=== PATIENT | male | born 1980 | race Caucasian/White ===

== ENCOUNTER 2020-09-27 20:18 | Emergency (ER) | payer BC, SELFPAY ==
[2020-09-27 20:20] VITALS: BP 127/77; PULSE 96; RESP 15; TEMP 36.9; O2SAT 98; BMI 22.8
[2020-09-27 20:25] VITALS: BP 127/77; PULSE 92; RESP 16; O2SAT 97
--- NOTE | 2020-09-27 20:33 | EX.ED.DYSGE1 ---
HPI History of Present Illness Chief Complaint: GI Bleed Informant: patient and EMS Narrative Narrative: 40-year-old male presents to the emergency department via EMS with the chief complaint of vomiting blood. Patient states that he underwent Nirali-en-Y gastric bypass in 2018 with [facility] [place]. He reports that he has been taking an antacid as needed. Today he was feeling good went out to dinner and had prime rib and Irish onion soup. On the way home from dinner he was complaining of a lymph node in his neck but also feeling nauseous. When he got home he began to vomit bright red blood. EMS notes that he vomited approximately 400 cc of bright red blood and food matter while in route to the hospital. Upon arriving here he states that he actually feels pretty good. He denies any black or bloody stools. The patient reports that he drinks 3-4 beers per day. He notes diarrhea for the past 3 days but again not black or bloody. [facility] Medical History (Updated 09/27/20 @ 21:[address] Cristian Horan, ) Alcohol abuse Anxiety Bulging disc Chest pain Depression Former smoker GERD (gastroesophageal reflux disease) Hypertension Spinal stenosis Home Medications bupropion HCl [Wellbutrin XL] 150 mg PO DAILY 09/27/20 [History Last Taken Unknown] Allergy/AdvReac Type Severity Reaction Status Date / Time No Known Allergies Allergy Verified 04/30/13 10:45 Surgical History (Updated 09/27/20 @ 20:37 by Andrew Sullivan) H/O gastric bypass History of arthroplasty of left knee S/P left rotator cuff repair Social History Smoking Status: Former smoker ROS ROS ED Constitutional Constitutional ED: Denies chills or weight loss Eyes Eyes: Denies change in vision or diplopia ENT ENT ED: Denies ear pain, rhinorrhea or sore throat Cardiovascular Cardiovascular: Denies chest pain, orthopnea, palpitations or racing heartbeat Respiratory/Chest Respiratory/Chest: Denies cough, dyspnea or orthopnea Gastrointestinal Gastrointestinal: Reports diarrhea, nausea and vomiting; Denies abdominal pain Genitourinary Genitourinary ED: Denies dysuria, hematuria or urinary frequency Musculoskeletal Musculoskeletal: Denies arthralgias or myalgias Integumentary Denies abscess or rash Neurologic Neurologic: Denies headache(s) or weakness Psychiatric Psychiatric: Denies anxiety, depression, suicidal ideation or suicidal thoughts Endocrine Endocrinology: Denies polydipsia, polyphagia or polyuria Allergic/Immunologic Allergic/Immunologic ED: Denies mouth swelling, tongue swelling or urticaria EXAM Physical Exam Narrative Exam Narrative: Patient is holding an emesis bag with approximately 200 cc of bright red blood. Const Vital Signs: 09/27/20 20:20 09/27/20 20:25 09/27/20 21:22 Temperature 98.4 F Temperature Source Temporal Pulse Rate 96 92 77 Respiratory Rate 15 16 14 Blood Pressure 127/77 H 127/77 H 100/59 L Blood Pressure Mean 93 93 72 Pulse Ox 98 97 97 Oxygen Delivery Method Room Air Room Air Room Air 09/27/20 22:15 Temperature Temperature Source Pulse Rate 73 Respiratory Rate 15 Blood Pressure 100/73 Blood Pressure Mean 82 Pulse Ox 98 Oxygen Delivery Method Room Air Positive well nourished and well developed General Appearance ED: well developed HEENT Reports normocephalic, head/scalp atraumatic and moist mucous membranes Eyes PERRL and EOMs intact bilaterally Neck no lymphadenopathy, supple and no JVD Resp normal respiratory effort and clear to auscultation bilaterally Cardio regular rate, regular rhythm and no murmurs GI normal to inspection, nondistended, normoactive bowel sounds and non-tender Palpation: soft Back/Spine no CVA tenderness and normal ROM Extremity normal to inspection General Extremety ED: Negative for edema General Extremity: Negative for edema Neuro oriented x3 and CN's II-XII intact bilaterally Sensorium / Orientation: alert Motor Exam: strength 5/5 throughout Psych mental status grossly normal Mood & Affect: Negative for depressed or tearful Skin no rashes or lesions noted and no wounds MDM MDM MDM Narrative Medical decision making narrative: Patient's white count starting at 13.8. Coags were normal. Lipase 295. BUN of 21 creatinine 0.77. Patient received IV fluids Zofran Protonix bolus and drip. My concern is that the patient has a ulcer most likely from lack of Protonix from his Nirali-en-Y. Cannot rule out the possibility of varicoses given his alcohol intake. I spoke with on-call surgeon here who recommends transfer to tertiary care facility where they have gastrointestinal coverage. We will be working on this. I spoke initially with Dr. Tam from [facility] and later Dr. Luna from [facility]. Patient has been accepted we will currently await a bed assignment. She has been hemodynamically stable and said no further bleeding. Lab Data Attestation: I reviewed the patient's lab results. Labs: Laboratory Results - last 24 hr 09/27/20 09/27/20 09/27/20 20:23 20:23 20:23 WBC 11.0 RBC 4.44 L Hgb 13.8 Hct 41.8 MCV 94.1 H MCH 31.1 MCHC 33.0 RDW Std Deviation 42.4 RDW Coeff of Connie 12.1 Plt Count 336 MPV 10.6 Immature Gran % (Auto) 0.600 Neut % (Auto) 56.6 Lymph % (Auto) 31.0 [place] % (Auto) 8.9 Eos % (Auto) 2.5 Baso % (Auto) 0.4 Absolute Neuts (auto) 6.2 Absolute Lymphs (auto) 3.40 Nucleated RBC % 0 PT 13.3 INR 1.1 APTT 25.0 Sodium 142 Potassium 4.4 Chloride 108 H Carbon Dioxide 27.0 Anion Gap 7 BUN 21 H Creatinine 0.77 Estim Creat Clear Calc 155.58 Est GFR (MDRD) Af Amer 145 Est GFR (MDRD) Non-Af 119 BUN/Creatinine Ratio 27.3 H Glucose 79 Calcium 7.4 L Total Bilirubin 0.40 Direct Bilirubin 0.12 AST 30 ALT 42 Alkaline Phosphatase 68 Total Protein 5.9 L Albumin 2.7 L Globulin 3.2 Lipase 295 09/27/20 22:35 WBC RBC Hgb 12.3 L Hct 37.4 L MCV MCH MCHC RDW Std Deviation RDW Coeff of Connie Plt Count MPV Immature Gran % (Auto) Neut % (Auto) Lymph % (Auto) [place] % (Auto) Eos % (Auto) Baso % (Auto) Absolute Neuts (auto) Absolute Lymphs (auto) Nucleated RBC % PT INR APTT Sodium Potassium Chloride Carbon Dioxide Anion Gap BUN Creatinine Estim Creat Clear Calc Est GFR (MDRD) Af Amer Est GFR (MDRD) Non-Af BUN/Creatinine Ratio Glucose Calcium Total Bilirubin Direct Bilirubin AST ALT Alkaline Phosphatase Total Protein Albumin Globulin Lipase Discharge Plan Triage Chief Complaint: GI Bleed ED Provider: Cristian Horan Dx/Rx/DC Orders Clinical Impression: Acute upper gastrointestinal hemorrhage Prescriptions: No Action bupropion HCl [Wellbutrin XL] 150 mg tablet extended release 24 hr 150 mg PO DAILY RF: 0 Primary Care Provider: Hawk Garcia Referrals: Hawk Garcia MD [Primary Care Provider] - Disposition Disposition: Acute Care Hospital
[2020-09-27] MEDS: Ondansetron 4 MG/2 ML Vial IV (20:42)
[2020-09-27 20:53] LABS: International Normalized Ratio 1.1; Prothrombin Time (Protime)PT. 13.3 SECONDS (11.7-14.9)
[2020-09-27 20:54] LABS: Absolute Neutrophil Count 6.2 X10^3/uL (2.0-7.7); Basophil# 0.04 X10^3/uL; Basophil% 0.4 % (0-1); Eosinophil# 0.27 X10^3/uL; Eosinophils% 2.5 % (0-5); Hematocrit 41.8 % (40-54); Hemoglobin 13.8 g/dL (13.0-16.5); Mean Corpuscular Hgb 31.1 pg (27.0-32.0); Mean Corpuscular Volume 94.1 fL (80-94); Mean Platelet Vol. 10.6 fl (6.2-12.0); Monocyte# 0.97 X10^3/uL; Monocyte% 8.9 % (0-10); NRBC Flagged by Analyzer 0 % (0-5); Neutrophil # 6.21 X10^3/uL (2.7-7.7); Neutrophil % 56.6 % (47-70); Platelet Count 336 K/mm3 (150-450); RBC Distribution Width CV 12.1 % (11.6-14.6); RBC Distribution Width SD 42.4 fl (35.1-43.9); Red Blood Count 4.44 M/mm3 (4.6-6.2)
[2020-09-27 21:05] LABS: AST(SGOT) 30 U/L (15-37); Alanine Aminotransfer ALT/SGPT 42 U/L (16-61); Albumin, Serum 2.7 g/dL (3.2-5.0); Alkaline Phosphatase 68 U/L (45-117); Anion Gap 7 (5-15); BUN 21 mg/dL (7-18); BUN/Creat Ratio 27.3 RATIO (10-20); Bilirubin, Direct 0.12 mg/dL (0.00-0.30); Calcium,Total 7.4 mg/dL (8.5-10.1); Chloride 108 mmol/L (98-107); Creatinine, Serum 0.77 mg/dL (0.70-1.30); EST Glomerular Filtration Rate 119 mL/min (>60); Est Glom Filt Rate - Afr Amer 145 mL/min (>60); Estimated Creatinine Clearance 155.58 ml/min; Globulin 3.2 g/dL (2.2-4.2); Glucose 79 mg/dL (74-106); Lipase 295 U/L (73-393); Potassium 4.4 mmol/L (3.5-5.1); Protein, Total 5.9 g/dL (6.4-8.2); Sodium Level 142 mmol/L (136-145)
[2020-09-27 21:22] VITALS: BP 100/59; PULSE 77; RESP 14; O2SAT 97
[2020-09-27 22:15] VITALS: BP 100/73; PULSE 73; RESP 15; O2SAT 98
[2020-09-27 22:45] LABS: Hematocrit 37.4 % (40-54); Hemoglobin 12.3 g/dL (13.0-16.5)
[2020-09-27 23:21] VITALS: BP 103/63; PULSE 72; RESP 14; O2SAT 96
[2020-09-28] MEDS: Ondansetron 4 MG/2 ML Vial IV (00:03)
[2020-09-28 00:29] VITALS: BP 109/75; PULSE 67; RESP 15; TEMP 36.9; O2SAT 98
== END 2020-09-28 00:45 | disposition short-term general hospital (02) ==
PROVIDERS: Emergency Provider Emergency Medicine; PCP Internal Medicine
DX: K92.2 Gastrointestinal hemorrhage, unspecified (principal); F32.9 Major depressive disorder, single episode, unspecified; Z79.899 Other long term (current) drug therapy; Z87.891 Personal history of nicotine dependence; Z98.84 Bariatric surgery status
CPT/HCPCS: 80048; 80076; 83690; 85014; 85018; 85025; 85610; 85730; 86850; 86900; 86901; 87426; 96365; 96366; 96375; 96376; 99285; J7030; A4216; J2405; J3490

== ENCOUNTER 2021-09-21 16:16 | Emergency (ER) | payer BC, SELFPAY ==
[2021-09-21 16:17] VITALS: BP 124/73; PULSE 67; RESP 16; TEMP 36.3; O2SAT 99; BMI 20.7
--- NOTE | 2021-09-21 17:06 | EKG12_ITS ---
Test Reason : CHEST TIGHTNESS Blood Pressure : / mmHG Vent. Rate : 057 BPM Atrial Rate : 057 BPM P-R Int : 148 ms QRS Dur : 076 ms QT Int : 426 ms P-R-T Axes : 067 052 069 degrees QTc Int : 414 ms Sinus bradycardia Otherwise normal ECG Confirmed by ALIDA MENEZES, MO ([id number]), sports editor EMILY SANTANA ([id number]) on 09/22/2021 11:17:07 AM Referred By: BEAN Confirmed By:MO IRWIN MD
--- NOTE | 2021-09-21 17:07 | EDS_ITS ---
HPI History of Present Illness Chief Complaint: General Illness Detail of Chief Complaint: Fatigue and weakness for weeks. Informant: patient Onset/Context/Timing Onset: Weeks Context: Gradual Onset Timing: Continuous Current Severity: Mild Maximum Severity: Mild Narrative Narrative: 41-year-old male history of gastric bypass surgery years ago in which she lost over 200 pounds. He does drink alcohol frequently. States the last several weeks has been very tired with fatigue no energy. Said yesterday he kind of felt dizzy. Nauseated. He threw up once. He is also had diarrhea for weeks. He denies any melena. No fever. Hematemesis. No dysuria. He denies any significant recent weight change after he stabilized after his gastric bypass surgery. He has had a history of bleeding gastric ulcer before but said the symptoms are different. At that time he was throwing up large amounts of blood. Prior similar symptoms: No Recent Illness/Hospitalization: No PFSH PFSH Medical History Alcohol abuse Anxiety Bulging disc Chest pain Depression Former smoker GERD (gastroesophageal reflux disease) Hypertension Spinal stenosis Home Medications multivitamin 1 tab PO DAILY 09/21/21 [History Last Taken Unknown] omeprazole 40 mg capsule,delayed release 1 cap PO DAILY 09/21/21 [History Last Taken Unknown] Allergy/AdvReac Type Severity Reaction Status Date / Time NSAIDS (Non-Steroidal AdvReac Other Verified 09/21/21 16:22 Anti-Inflamma Surgical History H/O gastric bypass History of arthroplasty of left knee S/P left rotator cuff repair Social History Smoking Status: Former smoker ROS ROS ED ROS Narrative Nausea and vomiting. Weakness. Review of Systems ROS Unobtainable: Denies due to encephalopathy Constitutional Constitutional ED: Denies chills or fever(s) Eyes Eyes: Denies blurry vision ENT ENT ED: Denies ear pain Cardiovascular Cardiovascular: Denies chest pain Respiratory/Chest Respiratory/Chest: Denies cough or dyspnea Gastrointestinal Gastrointestinal: Reports diarrhea, nausea and vomiting; Denies constipation or melena Genitourinary Genitourinary ED: Denies dysuria or hematuria Integumentary Denies abscess Neurologic Neurologic: Denies headache(s) Psychiatric Psychiatric: Denies anxiety Endocrine Endocrinology: Denies cold intolerance Hematologic/Lymphatic Hematologic/Lymphatic: Reports none Allergic/Immunologic Allergic/Immunologic ED: Denies mouth swelling or tongue swelling EXAM Physical Exam Narrative Exam Narrative: Well-appearing 41-year-old male. Vital signs stable afebrile. Pulse ox 99% on room air no signs hypoxia. Significant other bedside. H EENT exam unremarkable. Moist weeks membranes. Neck nontender no lymphadenopathy. Lungs clear to auscultation. Heart regular rhythm no murmur. Abdomen soft nontender normal bowel sounds no peritoneal signs. Moving all 4 extremities. Nontender no edema. Neurologically awake alert with no focal motor deficits. Const Vital Signs: 09/21/21 16:17 09/21/21 18:05 09/21/21 18:25 Temperature 97.3 F L 97.3 F L Temperature Source Temporal Temporal Pulse Rate 67 67 Respiratory Rate 16 16 Respiratory Effort Normal Non-Labored Respiratory Pattern Normal Blood Pressure 124/73 H 124/73 H Blood Pressure Mean 90 90 Pulse Ox 99 99 Oxygen Delivery Method Room Air Room Air Positive well nourished and well developed; Negative for obese, cachectic or contractures General Appearance ED: well developed; Negative for cachectic or contractures Nutritional Appearance: Negative for cachectic or obese HEENT Reports moist mucous membranes; Denies dry mucous membranes Negative for trauma Mouth ED: No dry mucous membranes Mouth: No dry mucous membranes Eyes PERRL and EOMs intact bilaterally General Eye ED: Negative for pale conjunctiva or scleral icterus Neck no lymphadenopathy, supple and no JVD General: Negative for tenderness Lymph Lymphatic: Negative for other Chest Wall inspection of chest normal and palpation of chest normal Resp normal respiratory effort and clear to auscultation bilaterally Effort and Inspection: Negative for retractions Auscultation: Negative for rales, rhonchi or wheezes Cardio regular rate, regular rhythm, S1 normal heart sound, S2 normal heart sound and no murmurs Rate: Negative for bradycardia Rhythm: Negative for abnormal rhythm GI normal to inspection, nondistended, normoactive bowel sounds, non-tender, non- distended and no masses Inspection: Negative for abdominal distention Auscultation: normoactive bowel sounds Palpation: soft; Negative for tender or guarding Back/Spine no CVA tenderness Cervical Spine: Negative for cervical spine tenderness Thoracic Spine / Upper Back: Negative for thoracic spinal tenderness Lumbar Spine / Lower Back: Negative for lumbar spinal tenderness Extremity normal to inspection General Extremety ED: Negative for edema or tenderness General Extremity: Negative for edema Neuro oriented x3 and CN's II-XII intact bilaterally Sensorium / Orientation: alert Motor Exam: strength 5/5 throughout Psych mental status grossly normal Appearance: Negative for other Attitude: No agitated Mood & Affect: Negative for depressed Skin no rashes or lesions noted and no wounds Rashes: No rashes noted Trauma: Negative for abrasion Wounds: Negative for wounds noted MDM MDM MDM Narrative Medical decision making narrative: 41-year-old male for 2 weeks is just felt generalized fatigue. His exam is benign. I will undergo work-up including labs, EKG and chest x-ray. Repeat exam at 6:58 PM patient doing well. I went over all his test results of both he and his . He will be discharged home with outpatient follow-up. His appointment to see his bariatric surgeon at the [facility] tomorrow. His labs, EKG chest x-ray were basically unremarkable. Lab Data Attestation: I reviewed the patient's lab results. Lab results narrative: CBC White count 8. H&H 13 and 41. Electrolytes gap of 3 BUN 22 creatinine 0.8. Liver enzymes unremarkable. Lipase normal 218. Thyroid test normal. Chest x- ray no acute process. EKG sinus bradycardia rate of [address] of [address] or ischemia nor any significant dysrhythmia. Labs: Laboratory Results - last 24 hr 09/21/21 09/21/21 17:40 17:40 WBC 8.4 RBC 4.35 L Hgb 13.6 Hct 41.2 MCV 94.7 H MCH 31.3 MCHC 33.0 RDW Std Deviation 43.9 RDW Coeff of Connie 12.6 Plt Count 271 MPV 10.2 Immature Gran % (Auto) 0.600 Neut % (Auto) 63.7 Lymph % (Auto) 20.5 [place] % (Auto) 13.5 H Eos % (Auto) 1.3 Baso % (Auto) 0.4 Absolute Neuts (auto) 5.4 Absolute Lymphs (auto) 1.72 Nucleated RBC % 0 Sodium 140 Potassium 3.7 Chloride 106 Carbon Dioxide 31.0 Anion Gap 3 L BUN 22 H Creatinine 0.88 Estim Creat Clear Calc 121.70 Est GFR (MDRD) Af Amer 122 Est GFR (MDRD) Non-Af 101 BUN/Creatinine Ratio 24.9 H Glucose 93 Calcium 8.0 L Total Bilirubin 0.30 AST 38 H ALT 42 Alkaline Phosphatase 73 Troponin I High Sens 4 Total Protein 5.9 L Albumin 2.5 L Globulin 3.4 Albumin/Globulin Ratio 0.7 L Lipase 218 TSH 0.73 Radiography Chest X-Ray - ED: 1 View, Read by ED Physician, Read by Radiologist, Heart, Lungs, Mediastinum, Bony Structures, No Acute Disease and Chronic Changes Diagnostic Testing: Clinical Impression(s) from Imaging Studies Chest X-Ray 09/21/21 18:05 IMPRESSION: No acute cardiopulmonary abnormality. Electronically Signed: Jaylen Dexter MD at 18:24 EDT , Chest x-ray, portable, single view interpreted by myself and radiologist shows no acute abnormality. Normal cardiac silhouette mediastinum. Normal lung kaur. Rhythm Strip Rhythm Strip: Sinus Rhythm Rate: 57 Ectopy: None EKG Initial EKG: Attestation: I personally reviewed and interpreted this EKG as follows: Interpretation: Sinus Rhythm, No Acute Injury Pattern and Sinus Bradycardia Comments: Sinus bradycardia rate of [address] of [address], ischemia or significant dysrhythmia. Discharge Plan Triage Chief Complaint: General Illness ED Provider: Oren Coffman Dx/Rx/DC Orders Clinical Impression: Fatigue Instructions: ED Weakness (Uncertain Cause) Prescriptions: No Action bupropion HCl [Wellbutrin XL] 150 mg tablet extended release 24 hr 150 mg PO DAILY Primary Care Provider: Hawk Garcia Referrals: Hawk Garcia MD [Primary Care Provider] - 1 Week if not improving Activity Restrictions/Additional Instructions: Follow-up with your gastric bypass surgeon tomorrow. Follow-up with your primary care physician not improving. Your labs, EKG and chest x-ray today were all unremarkable. Disposition Disposition: Home, Self Care
[2021-09-21 17:50] LABS: Absolute Lymphocyte Count 1.72 X10^3/uL (0.83-4.51); Absolute Neutrophil Count 5.4 X10^3/uL (2.0-7.7); Basophil# 0.03 X10^3/uL; Basophil% 0.4 % (0-1); Eosinophil# 0.11 X10^3/uL; Eosinophils% 1.3 % (0-5); Hematocrit 41.2 % (40-54); Hemoglobin 13.6 g/dL (13.0-16.5); Lymphocyte # 1.72 X10^3/ul (0.83-4.51); Lymphocyte % 20.5 % (19-41); Mean Corpuscular Hgb 31.3 pg (27.0-32.0); Mean Corpuscular Volume 94.7 fL (80-94); Mean Platelet Vol. 10.2 fl (6.2-12.0); Monocyte# 1.13 X10^3/uL; Monocyte% 13.5 % (0-10); NRBC Flagged by Analyzer 0 % (0-5); Neutrophil # 5.35 X10^3/uL (2.7-7.7); Neutrophil % 63.7 % (47-70); Platelet Count 271 K/mm3 (150-450); RBC Distribution Width CV 12.6 % (11.6-14.6); RBC Distribution Width SD 43.9 fl (35.1-43.9); Red Blood Count 4.35 M/mm3 (4.6-6.2); White Blood Count 8.4 K/mm3 (4.4-11.0)
[2021-09-21 18:05] VITALS: BP 124/73; PULSE 67; RESP 16; TEMP 36.3; O2SAT 99
--- NOTE | 2021-09-21 18:05 | RAD_ITS ---
EXAM: XR CHEST, 1 VIEW CLINICAL INDICATION: weakness TECHNIQUE: Frontal view of the chest. This report was created using [employer] report generation technology. COMPARISON: None. FINDINGS: LUNGS AND PLEURAL SPACES: Calcified granuloma in the right lung apex. No pneumothorax. No effusion. HEART: Unremarkable. Cardiac silhouette not enlarged. MEDIASTINUM: Central airways and mediastinal contour are unremarkable. BONES/JOINTS: Unremarkable. SOFT TISSUES: Unremarkable. RAD/Chest 1 View (Portable) IMPRESSION: No acute cardiopulmonary abnormality. Electronically Signed: Jaylen Dexter MD at 18:24 EDT ,
[2021-09-21 18:15] LABS: ALB/GLOB Ratio 0.7 RATIO (0.9-2.4); AST(SGOT) 38 U/L (15-37); Alanine Aminotransfer ALT/SGPT 42 U/L (16-61); Albumin, Serum 2.5 g/dL (3.2-5.0); Alkaline Phosphatase 73 U/L (45-117); Anion Gap 3 (5-15); BUN 22 mg/dL (7-18); BUN/Creat Ratio 24.9 RATIO (10-20); Chloride 106 mmol/L (98-107); Creatinine, Serum 0.88 mg/dL (0.70-1.30); EST Glomerular Filtration Rate 101 mL/min (>60); Est Glom Filt Rate - Afr Amer 122 mL/min (>60); Globulin 3.4 g/dL (2.2-4.2); Glucose 93 mg/dL (74-106); Lipase 218 U/L (73-393); Potassium 3.7 mmol/L (3.5-5.1); Protein, Total 5.9 g/dL (6.4-8.2); Sodium Level 140 mmol/L (136-145); Thyroid Stim Hormone (TSH) 0.73 uIU/mL (0.358-3.74); Troponin-I HS 4 pg/mL (3.0-78.0)
[2021-09-21 19:04] VITALS: PULSE 58; RESP 16; O2SAT 99
== END 2021-09-21 19:08 | disposition home or self-care (01) ==
PROVIDERS: Emergency Provider Emergency Medicine; PCP Internal Medicine; Visit Provider Emergency Medicine
DX: R53.83 Other fatigue (principal); K21.9 Gastro-esophageal reflux disease without esophagitis; Z87.891 Personal history of nicotine dependence; Z79.899 Other long term (current) drug therapy; Z98.84 Bariatric surgery status
CPT/HCPCS: 71045; 80053; 83690; 84443; 84484; 85025; 93005; 99283

== ENCOUNTER 2021-09-27 18:36 | Emergency (ER) | payer BC, SELFPAY ==
[2021-09-27 18:37] VITALS: BP 168/93; PULSE 100; RESP 17; TEMP 36.7; O2SAT 97; BMI 22.3
--- NOTE | 2021-09-27 18:48 | EX.ED.SAOD ---
HPI History of Present Illness Chief Complaint: Mental Health Detail of Chief Complaint: accidental substance ingestion Informant: patient Onset/Context/Timing Onset: Today (within past 1-2 hrs) Context: Gradual Onset Timing: Continuous Quality: feels poorly Location: all over Current Severity: Severe Maximum Severity: Severe Worsened by: nothing Relieved by: nothing Narrative Narrative: Patient was with his significant other, he was with some friends, one of them has rheumatoid arthritis and takes Gummies with something in them that they are unaware of, suspecting THC, he was drinking a large glass of rum at the time and his friend offered him a gummy that he ingested and then relatively quickly started feeling very poorly and they decided to leave. On the way back here home, he started having occasional jerking without any loss of consciousness, more like and occasional myoclonic jerk throughout his body no convulsions or seizure activity, and moaning about how poorly he feels which is how he has now. Patient is apologetic, he did not try to overdose on anything or take any other pills or medications with this. [facility] Medical History Alcohol abuse Anxiety Bulging disc Chest pain Depression Former smoker GERD (gastroesophageal reflux disease) Hypertension Spinal stenosis Home Medications multivitamin 1 tab PO DAILY 09/21/21 [History Last Taken Unknown] omeprazole 40 mg capsule,delayed release 1 cap PO DAILY 09/21/21 [History Last Taken Unknown] Allergy/AdvReac Type Severity Reaction Status Date / Time NSAIDS (Non-Steroidal AdvReac Other Verified 09/27/21 18:37 Anti-Inflamma Surgical History H/O gastric bypass History of arthroplasty of left knee S/P left rotator cuff repair Social History Smoking Status: Former smoker ROS ROS ED Constitutional Constitutional ED: Reports fatigue and malaise; Denies chills or fever(s) Eyes Eyes: Denies change in vision or diplopia ENT ENT ED: Reports dry mouth; Denies rhinorrhea or sore throat Cardiovascular Cardiovascular: Denies chest pain or palpitations Respiratory/Chest Respiratory/Chest: Denies cough or dyspnea Gastrointestinal Gastrointestinal: Denies abdominal pain, diarrhea, nausea or vomiting Genitourinary Genitourinary ED: Denies dysuria or hematuria Musculoskeletal Musculoskeletal: Denies back pain or neck pain Integumentary Denies abscess or rash Neurologic Neurologic: Denies headache(s), paresthesias or weakness Psychiatric Psychiatric: Reports anxiety; Denies suicidal thoughts EXAM Physical Exam Const Vital Signs: 09/27/21 20:59 09/27/21 23:11 Pulse Rate 78 71 Respiratory Rate 15 16 Blood Pressure 124/76 H 103/58 L Blood Pressure Mean 92 Pulse Ox 95 98 Oxygen Delivery Method Room Air Positive well nourished and well developed General Appearance ED: well developed and NAD HEENT Reports moist mucous membranes normocephalic and atraumatic Eyes PERRL and EOMs intact bilaterally Eyes Narrative: horiz nystagmus Neck full ROM and supple Resp normal respiratory effort and clear to auscultation bilaterally Cardio regular rate, regular rhythm and no murmurs GI non-tender and non-distended Auscultation: normoactive bowel sounds Palpation: soft Back/Spine no CVA tenderness General Back: other FROM Extremity normal to inspection General Extremety ED: Negative for edema, pulses abnormal or tenderness General Extremity: Negative for edema or pulses abnormal Neuro oriented x3, CN's II-XII intact bilaterally and no sensory deficits noted Sensorium / Orientation: awake and alert Motor Exam: strength 5/5 throughout Skin no rashes or lesions noted and no wounds Skin Narrative: dry; no diaphoresis MDM MDM MDM Narrative Medical decision making narrative: Patient does not have a clinical toxidrome that necessitates an antidote; I suspect this is alcohol and THC, and obtaining a drug screen and alcohol level, basic labs with electrolytes and renal function, and given a liter of fluid. He was a little hypertensive initially 168/93, but while I am in the room his blood pressures in the 140s, heart rate in the 90s, and the rest of his vital signs are normal. He occasionally is shaky in his legs a little, but for the most part just appears high and possibly intoxicated. Alcohol is 118, that alone does not account for the patient's state, and I agree with he and his significant other that he had some other type of substance that he ingested likely THC, however after a liter of IV fluid he does not feel like he needs to urinate. They do want to provide specimen for toxicology screening, so he was given another liter of fluid. Patient is not acutely agitated, he is actually a little more somnolent, although he awakes easily to voice. His vital signs have remained normal since his initial pressure that was elevated, at the time of this dictation 124/76. He slept for an hour or 2 according to significant other, he was never hypoxic or bradypneic so I do not feel that he needs to be treated with Narcan. Toxicology is sent and pending; will report results and then likely discharge home to continue resting. It was positive for THC as expected. Given appropriate discharge instructions. Lab Data Attestation: I reviewed the patient's lab results. Labs: Laboratory Results - last 24 hr 09/27/21 09/27/21 18:45 22:00 Urine Opiates Screen NEGATIVE Urine Methadone Screen NEGATIVE Ur Barbiturates Screen NEGATIVE Ur Phencyclidine Scrn NEGATIVE Ur Amphetamines Screen NEGATIVE MDMA (Ecstasy) Screen NEGATIVE U Benzodiazepines Scrn NEGATIVE Urine Cocaine Screen NEGATIVE U Cannabinoids Screen POSITIVE H Ur Drug Screen Comment Ethyl Alcohol 118.0 Rhythm Strip Rhythm Strip: Sinus Rhythm Rate: 95 Ectopy: None Discharge Plan Triage Chief Complaint: Mental Health ED Provider: Mook Pablo Dx/Rx/DC Orders Clinical Impression: Ingestion of substance, Alcohol intoxication Instructions: Understanding Synthetic Marijuana Prescriptions: No Action multivitamin Tablet 1 tab PO DAILY omeprazole 40 mg capsule,delayed release(DR/EC) 1 cap PO DAILY Label Comments: TAKE 1 CAPSULE BY MOUTH EVERY DAY Primary Care Provider: Hawk Garcia Referrals: Hawk Garcia MD [Primary Care Provider] - As Needed Disposition Disposition: Home, Self Care Discharge Date/Time: 09/27/21 23:12
[2021-09-27] MEDS: 0.9% Normal Saline 1,000 ML 999 ML IV ×2 (18:56→21:00)
[2021-09-27 18:58] LABS: Absolute Lymphocyte Count 2.58 X10^3/uL (0.83-4.51); Absolute Neutrophil Count 5.7 X10^3/uL (2.0-7.7); Basophil# 0.05 X10^3/uL; Basophil% 0.5 % (0-1); Eosinophil# 0.11 X10^3/uL; Eosinophils% 1.2 % (0-5); Hematocrit 44.9 % (40-54); Hemoglobin 14.6 g/dL (13.0-16.5); Lymphocyte # 2.58 X10^3/ul (0.83-4.51); Mean Corp Hgb Conc 32.5 g/dL (32-36); Mean Corpuscular Hgb 30.7 pg (27.0-32.0); Mean Corpuscular Volume 94.5 fL (80-94); Mean Platelet Vol. 9.7 fl (6.2-12.0); Monocyte# 0.98 X10^3/uL; Monocyte% 10.3 % (0-10); NRBC Flagged by Analyzer 0 % (0-5); Neutrophil # 5.73 X10^3/uL (2.7-7.7); Platelet Count 379 K/mm3 (150-450); RBC Distribution Width CV 12.3 % (11.6-14.6); RBC Distribution Width SD 43.2 fl (35.1-43.9); Red Blood Count 4.75 M/mm3 (4.6-6.2); White Blood Count 9.6 K/mm3 (4.4-11.0)
[2021-09-27 19:11] LABS: Anion Gap 8 (5-15); BUN 8 mg/dL (7-18); BUN/Creat Ratio 8.5 RATIO (10-20); Calcium,Total 7.9 mg/dL (8.5-10.1); Chloride 106 mmol/L (98-107); Creatinine, Serum 0.94 mg/dL (0.70-1.30); EST Glomerular Filtration Rate 94 mL/min (>60); Est Glom Filt Rate - Afr Amer 113 mL/min (>60); Estimated Creatinine Clearance 122.78 ml/min; Glucose 142 mg/dL (74-106); Potassium 3.3 mmol/L (3.5-5.1); Sodium Level 140 mmol/L (136-145)
[2021-09-27 20:59] VITALS: BP 124/76; PULSE 78; RESP 15; O2SAT 95
[2021-09-27 22:58] LABS: Amphetamine Urine VISTA NEGATIVE (<1000 ng/mL); Barbiturate Urine VISTA NEGATIVE (< 200 ng/mL); Benzodiazepine Urine VISTA NEGATIVE (< 200 ng/mL); Cocaine Urine VISTA NEGATIVE (< 300 ng/mL); Ecstacy Urine VISTA NEGATIVE (< 500 ng/mL); Methadone Urine VISTA NEGATIVE (< 300 ng/mL); PCP Urine VISTA NEGATIVE (< 25 ng/mL); THC Urine VISTA POSITIVE (< 50 ng/mL); Vista UDS pH Range 5
[2021-09-27 23:11] VITALS: BP 103/58; PULSE 71; RESP 16; O2SAT 98
== END 2021-09-27 23:12 | disposition home or self-care (01) ==
PROVIDERS: Emergency Provider Emergency Medicine; PCP Internal Medicine; Visit Provider Emergency Medicine
DX: T65.91XA Toxic effect of unspecified substance, accidental (unintentional), initial encounter (principal); F10.129 Alcohol abuse with intoxication, unspecified; K21.9 Gastro-esophageal reflux disease without esophagitis; Z87.891 Personal history of nicotine dependence; Z79.899 Other long term (current) drug therapy
CPT/HCPCS: 80048; 80307; 82077; 85025; 99282; J7030

== ENCOUNTER 2021-12-31 12:52 | Emergency (ER) | payer BC, SELFPAY ==
[2021-12-31 12:53] VITALS: BP 154/92; PULSE 81; RESP 18; TEMP 36.6; O2SAT 97; BMI 21.7
--- NOTE | 2021-12-31 13:20 | EKG12_ITS ---
Test Reason : CP Blood Pressure : / mmHG Vent. Rate : 084 BPM Atrial Rate : 084 BPM P-R Int : 114 ms QRS Dur : 064 ms QT Int : 350 ms P-R-T Axes : 050 068 082 degrees QTc Int : 413 ms Normal sinus rhythm Nonspecific T wave abnormality Abnormal ECG Confirmed by ESMER MENEZES, ROBYN ([id number]), news videotape editor AMANDA KEITA ([id number]) on 01/02/2022 2:13:23 P M Referred By: ALBAN/ROBERT Confirmed By:CLIVE LYMAN MD
--- NOTE | 2021-12-31 13:35 | RAD_ITS ---
STUDY: X-RAY CHEST REASON FOR EXAM: Male, 41 years old. Generalized weakness. Cough. TECHNIQUE: Single AP portable view of the chest. COMPARISON: Comparison is made with prior study dated 09/21/2021. FINDINGS: Hyperinflation. The lungs are clear and expanded. There is no demonstrated pleural abnormality. Normal size heart. Normal mediastinum and siri. Normal visualized pulmonary arteries. Normal visualized aortic arch and descending thoracic aorta. Normal visualized thoracic spine. Normal visualized ribs, clavicles, and shoulders. There is no demonstrated abnormality of the visualized soft tissue structures of the upper abdomen. RAD/Chest 1 View (Portable) IMPRESSION: Hyperinflation. The lungs are clear. Electronically Signed: Poli Roth MD at 14:00 EDT ,
[2021-12-31 13:48] LABS: Anion Gap 8 (5-15); BUN 11 mg/dL (7-18); BUN/Creat Ratio 10.8 RATIO (10-20); Chloride 103 mmol/L (98-107); Creatinine, Serum 1.02 mg/dL (0.70-1.30); EST Glomerular Filtration Rate 86 mL/min (>60); Est Glom Filt Rate - Afr Amer 104 mL/min (>60); Estimated Creatinine Clearance 109.94 ml/min; Glucose 331 mg/dL (74-106); Potassium 3.8 mmol/L (3.5-5.1); Sodium Level 135 mmol/L (136-145)
[2021-12-31 13:58] LABS: Absolute Neutrophil Count 11.5 X10^3/uL (2.0-7.7); Basophil# 0.03 X10^3/uL; Basophil% 0.2 % (0-1); Hematocrit 45.2 % (40-54); Hemoglobin 15.4 g/dL (13.0-16.5); Lymphocyte % 1.5 % (19-41); Mean Corp Hgb Conc 34.1 g/dL (32-36); Mean Corpuscular Hgb 32.3 pg (27.0-32.0); Mean Corpuscular Volume 94.8 fL (80-94); Monocyte% 8.5 % (0-10); NRBC Flagged by Analyzer 0 % (0-5); Neutrophil # 11.53 X10^3/uL (2.7-7.7); Neutrophil % 89.2 % (47-70); POSITIVE DIFFERENTIAL YES; Platelet Count 226 K/mm3 (150-450); RBC Distribution Width CV 12.1 % (11.6-14.6); RBC Distribution Width SD 42.1 fl (35.1-43.9); Red Blood Count 4.77 M/mm3 (4.6-6.2); White Blood Count 12.9 K/mm3 (4.4-11.0)
[2021-12-31 13:59] LABS: Differential Indicated SCAN CRITERIA MET
[2021-12-31 14:09] LABS: Differential Comment SCANNED
--- NOTE | 2021-12-31 16:06 | CT_ITS ---
STUDY: CT Abdomen And Pelvis W/ Contrast Injection 12/31/2021 6:26 PM REASON FOR EXAM: Male, 41 years old. ABDOMINAL PAIN back pain nausea and vomiting TECHNIQUE: Transaxial images were obtained with oral contrast, and with Oral and amp; IV Gastrografin and amp; 100mL Isovue-370 intravenous contrast. Individualized dose optimization techniques were used for this CT. COMPARISON: 04/30/13. FINDINGS: The visualized lung bases are unremarkable. The visualized portions of the heart are within normal limits. Stable hypodensity of the right lobe of the liver. Unremarkable gallbladder and extrahepatic biliary system. Unremarkable spleen. Unremarkable pancreas. Unremarkable bilateral adrenal glands. No acute findings of the right kidney. Cortical scarring of the of the left kidney. Stable hypodensity of the left kidney. There are multiple surgical clips around the stomach. There are also anastomotic sutures around the stomach and altered gastrointestinal anatomy. This is consistent for prior gastric surgery (this may include sleeve, Jie, or gastric bypass and other types of gastric surgery). Unremarkable small intestine. There is wall thickening of the ascending colon. There is also questionable inflammation around the colon. This can suggest a colitis. This can also suggest incomplete distension of the colon. The appendix is visualized and appears unremarkable. There are no acute findings of the abdominal aorta. Unremarkable inferior vena cava. Subcentimeter mesenteric lymph nodes. Urinary bladder wall has wall thickening. This can be related to a partially contractile state. However, a cystitis is not excluded. Urinalysis should be performed in an effort to exclude cystitis. There is a left-sided inguinal hernia containing adipose tissue. There are diffuse degenerative changes of the visualized lumbar spine. There are bilateral pars articularis defects at L4-5. There is a Grade 1 anterolisthesis of L4 on L5. CT/Abdomen/Pelvis WITH Contrast IMPRESSION: (NOT LISTED IN ORDER OF SIGNIFICANCE) Urinary bladder wall has wall thickening. This can be related to a partially contractile state. However, a cystitis is not excluded. Urinalysis should be performed in an effort to exclude cystitis. Mild colitis of the ascending colon. Other findings as above. Electronically Signed: Tre Randolph MD at 18:30 EDT ,
[2021-12-31] MEDS: 0.9% Normal Saline 1,000 ML 999 ML IV (16:20)
[2021-12-31] MEDS: Ondansetron 4 MG/2 ML Vial IV (16:20)
[2021-12-31] MEDS: Acetaminophen 325 MG Tablet 650 MG PO (16:35)
[2021-12-31 16:37] LABS: Lipase 169 U/L (73-393); Troponin-I HS 3 pg/mL (3.0-78.0)
[2021-12-31] MEDS: Famotidine 200 MG/20 ML MDV 20 MG in 0.9% Normal Saline (Pres. free 8 ML 300 MG IV (16:38)
[2021-12-31 16:43] LABS: AST(SGOT) 1299 U/L (15-37); Alanine Aminotransfer ALT/SGPT 572 U/L (16-61); Albumin, Serum 2.6 g/dL (3.2-5.0); Alkaline Phosphatase 124 U/L (45-117); Bilirubin, Direct 0.38 mg/dL (0.00-0.30); Protein, Total 6.6 g/dL (6.4-8.2)
[2021-12-31 16:56] VITALS: BP 119/68; PULSE 77; RESP 16; O2SAT 95
[2021-12-31 18:18] VITALS: BP 118/73; PULSE 74; RESP 16; O2SAT 95
--- NOTE | 2021-12-31 18:53 | EX.ED.DYSGE1 ---
HPI History of Present Illness Chief Complaint: Weakness Informant: patient Narrative Narrative: Patient is a 41-year-old male with history of Nirali-en-Y gastric bypass remotely with subsequent 240 pound weight loss, GERD and regular alcohol use presenting with worsening abdominal pain. Patient states he has had crampy achy epigastric abdominal pain for the past week with diarrhea. He states the pain will radiate to his chest and into his back. He has had nausea and episodes of vomiting/dry heaves today. Denies any black or blood in his vomit or his stool. Notes that he feels like he cannot pass gas when he is laying down but can when he stands up. He had a fever of 101.9 today. He did have COVID-19 infection on November 06 and since then has been having fatigue and insomnia. His other symptoms are new within the last week. Drinks 3-4 Coors light beers a day. Denies any illicit drug use. Denies any history of hepatitis, blood transfusions or IV drug use. No other complaints at this time. [facility] Medical History Alcohol abuse Anxiety Bulging disc Chest pain Depression Former smoker GERD (gastroesophageal reflux disease) Hypertension Spinal stenosis Home Medications multivitamin 1 tab PO DAILY 09/21/21 [History Last Taken Unknown] omeprazole 40 mg capsule,delayed release 1 cap PO DAILY 09/21/21 [History Last Taken Unknown] ondansetron 4 mg disintegrating tablet 4 mg PO Q6H PRN nausea and vomiting #20 tabs 12/31/21 [Rx Last Taken Unknown] Allergy/AdvReac Type Severity Reaction Status Date / Time NSAIDS (Non-Steroidal AdvReac Other Verified 12/31/21 12:53 Anti-Inflamma Surgical History H/O gastric bypass History of arthroplasty of left knee S/P left rotator cuff repair Social History Smoking Status: Former smoker ROS ROS ED Constitutional Constitutional ED: Reports chills, fever(s) and other Details: fatigue Eyes Eyes: Denies blurry vision or change in vision ENT ENT ED: Reports sore throat; Denies rhinorrhea Cardiovascular Cardiovascular: Reports chest pain Respiratory/Chest Respiratory/Chest: Denies cough or dyspnea Gastrointestinal Gastrointestinal: Reports abdominal pain, diarrhea, nausea and vomiting; Denies melena Genitourinary Genitourinary ED: Denies dysuria or hematuria Musculoskeletal Musculoskeletal: Denies arthralgias or myalgias Integumentary Denies rash Neurologic Neurologic: Reports weakness; Denies headache(s) or paresthesias Psychiatric Psychiatric: Denies anxiety Hematologic/Lymphatic Hematologic/Lymphatic: Denies easy bleeding or easy bruising EXAM Physical Exam Const Vital Signs: 12/31/21 12:53 12/31/21 14:05 12/31/21 16:56 Temperature 97.9 F Temperature Source Temporal Pulse Rate 81 77 Respiratory Rate 18 16 Respiratory Pattern Normal Blood Pressure 154/92 H 119/68 Blood Pressure Mean 112 85 Pulse Ox 97 95 Oxygen Delivery Method Room Air Room Air 12/31/21 18:18 Temperature Temperature Source Pulse Rate 74 Respiratory Rate 16 Respiratory Pattern Blood Pressure 118/73 Blood Pressure Mean 88 Pulse Ox 95 Oxygen Delivery Method Room Air Positive well nourished and well developed General Appearance ED: well developed and NAD HEENT Reports moist mucous membranes HEENT Narrative: Normal oropharynx Eyes PERRL and EOMs intact bilaterally Neck supple and no JVD Chest Wall inspection of chest normal and palpation of chest normal Resp normal respiratory effort and clear to auscultation bilaterally Cardio regular rate, regular rhythm and no murmurs GI normal to inspection, nondistended, normoactive bowel sounds GI Narrative: Mild tenderness in the right lateral upper quadrant but no pain at McBurney's point. Negative Ross sign. Palpation: soft and tender RUQ; Negative for guarding Back/Spine no CVA tenderness Extremity normal to inspection Neuro oriented x3, CN's II-XII intact bilaterally and no sensory deficits noted Sensorium / Orientation: alert Motor Exam: strength 5/5 throughout and general weakness Psych mental status grossly normal Skin no rashes or lesions noted and no wounds MDM MDM MDM Narrative Medical decision making narrative: Patient is evaluated for 1 week of worsening upper abdominal pain with a few days of sore throat, nausea, vomiting and diarrhea. Patient had fever of 101.9 today. Patient states he just been feeling very tired and weak. Patient is nontoxic-appearing. He has a mild leukocytosis of 12.9 which is nonspecific. BMP unremarkable however CMP shows normal bilirubin but a significantly elevated AST and ALT. Alk phos is only mildly elevated at 124. High sensitive troponin is 3 and I do not think his symptoms are referred cardiac. Patient has been taking Tylenol for his symptoms but his Tylenol level is low at 8.7. Monospot added on which is negative. Initial glucose is elevated at 331 however on repeat after IV fluids it is now normalized at 99. Suspect this was just an acute stress reaction. CT of the abdomen pelvis obtained which shows some wall thickening of the urinary bladder cannot exclude cystitis and possible mild colitis versus underdistention of the ascending colon. Patient not have any urinary symptoms so I do not suspect cystitis. He does not have any risk factors for this. Case is discussed with GI who feels that with his AST and ALT ratio this is either viral hepatitis versus medication induced. Patient's not any medications to cause a hepatitis. Patient also has a viral symptomatology with fevers, malaise, sore throat, nausea, vomiting diarrhea. He does not recommend any antibiotics at this time and does not think this is a colitis. Hepatitis panel is sent. Patient is given GI follow-up. He is given 1 dose of Toradol for his headache in the ER. Patient is given a GI cocktail for his epigastric discomfort as well as a dose of IV Pepcid. Patient counseled return precautions. Is resting comfortably in the ER at time of disposition. Lab Data Attestation: I reviewed the patient's lab results. Labs: Laboratory Results - last 24 hr 12/31/21 12/31/21 12/31/21 13:27 13:27 13:27 WBC 12.9 H RBC 4.77 Hgb 15.4 Hct 45.2 MCV 94.8 H MCH 32.3 H MCHC 34.1 RDW Std Deviation 42.1 RDW Coeff of Connie 12.1 Plt Count 226 MPV 10.0 Immature Gran % (Auto) 0.600 Neut % (Auto) 89.2 H Lymph % (Auto) 1.5 L Villalba % (Auto) 8.5 Eos % (Auto) 0.0 Baso % (Auto) 0.2 Absolute Neuts (auto) 11.5 H Absolute Lymphs (auto) 0.20 L Nucleated RBC % 0 Differential Comment SCANNED Sodium 135 L Potassium 3.8 Chloride 103 Carbon Dioxide 24.0 Anion Gap 8 BUN 11 Creatinine 1.02 Estim Creat Clear Calc 109.94 Est GFR (MDRD) Af Amer 104 Est GFR (MDRD) Non-Af 86 BUN/Creatinine Ratio 10.8 Glucose 331 H Calcium 8.0 L Total Bilirubin 0.80 Direct Bilirubin 0.38 H AST 1299 H ALT 572 H Alkaline Phosphatase 124 H Troponin I High Sens Total Protein 6.6 Albumin 2.6 L Globulin 4.0 Lipase Acetaminophen Monoscreen POC Glucose 12/31/21 12/31/21 12/31/21 13:27 18:27 20:10 WBC RBC Hgb Hct MCV MCH MCHC RDW Std Deviation RDW Coeff of Connie Plt Count MPV Immature Gran % (Auto) Neut % (Auto) Lymph % (Auto) Villalba % (Auto) Eos % (Auto) Baso % (Auto) Absolute Neuts (auto) Absolute Lymphs (auto) Nucleated RBC % Differential Comment Sodium Potassium Chloride Carbon Dioxide Anion Gap BUN Creatinine Estim Creat Clear Calc Est GFR (MDRD) Af Amer Est GFR (MDRD) Non-Af BUN/Creatinine Ratio Glucose Calcium Total Bilirubin Direct Bilirubin AST ALT Alkaline Phosphatase Troponin I High Sens 3 Total Protein Albumin Globulin Lipase 169 Acetaminophen 8.7 L Monoscreen Negative POC Glucose 12/31/21 20:55 WBC RBC Hgb Hct MCV MCH MCHC RDW Std Deviation RDW Coeff of Connie Plt Count MPV Immature Gran % (Auto) Neut % (Auto) Lymph % (Auto) Villalba % (Auto) Eos % (Auto) Baso % (Auto) Absolute Neuts (auto) Absolute Lymphs (auto) Nucleated RBC % Differential Comment Sodium Potassium Chloride Carbon Dioxide Anion Gap BUN Creatinine Estim Creat Clear Calc Est GFR (MDRD) Af Amer Est GFR (MDRD) Non-Af BUN/Creatinine Ratio Glucose Calcium Total Bilirubin Direct Bilirubin AST ALT Alkaline Phosphatase Troponin I High Sens Total Protein Albumin Globulin Lipase Acetaminophen Monoscreen POC Glucose 99 Radiography Chest X-Ray - ED: 1 View, Read by ED Physician, Read by Radiologist and No Acute Disease Diagnostic Testing: Clinical Impression(s) from Imaging Studies Chest X-Ray 12/31/21 13:35 IMPRESSION: Hyperinflation. The lungs are clear. Electronically Signed: Poli Roth MD at 14:00 EDT , Abdomen/Pelvis CT 12/31/21 16:06 IMPRESSION: (NOT LISTED IN ORDER OF SIGNIFICANCE) Urinary bladder wall has wall thickening. This can be related to a partially contractile state. However, a cystitis is not excluded. Urinalysis should be performed in an effort to exclude cystitis. Mild colitis of the ascending colon. Other findings as above. Electronically Signed: Tre Randolph MD at 18:30 EDT , Rhythm Strip Rhythm Strip: Sinus Rhythm Rate: 84 Ectopy: None EKG Initial EKG: Attestation: I personally reviewed and interpreted this EKG as follows: Interpretation: Sinus Rhythm Comments: Normal sinus rhythm at a rate of 84 Normal axis Normal intervals Normal ST segments Discharge Plan Triage Chief Complaint: Weakness ED Provider: Sangita Walter Dx/Rx/DC Orders Clinical Impression: Acute hepatitis, Nausea, Weakness, High liver transaminase level Instructions: ED Hepatitis Cause Unknown ... Prescriptions: New ondansetron 4 mg tablet,disintegrating 4 mg PO Q6H PRN (Reason: nausea and vomiting) Qty: 20 0RF No Action multivitamin Tablet 1 tab PO DAILY omeprazole 40 mg capsule,delayed release(DR/EC) 1 cap PO DAILY Label Comments: TAKE 1 CAPSULE BY MOUTH EVERY DAY Primary Care Provider: Velvet Danielle NP Referrals: Randy Gonzalez, DO [Med Staff - Active Staff] - As soon as possible Velvet Danielle NP, [facility] [Primary Care Provider] - Activity Restrictions/Additional Instructions: Your lab work is consistent with a viral hepatitis (inflammation of your liver). Try to drink lots of fluids. Please avoid taking Tylenol at home. Continue taking your antacid. He been prescribed nausea medicine. Return the emergency room if you have worsening symptoms or do not feel acute and keep yourself hydrated. No signs of a surgical emergency or bacterial infection requiring antibiotics at this time. Your cardiac work-up is normal. Disposition Disposition: Home, Self Care Discharge Date/Time: 12/31/21 21:48
[2021-12-31 19:15] LABS: Internal QC Validated? YES +Cl - CLEAR BKGD; Monotest Negative (Negative)
[2021-12-31] MEDS: Mag Hydrox/Al Hydrox/Simeth 30 ML UDC PO (19:59)
[2021-12-31 20:46] LABS: Acetaminophen (Tylenol) Level 8.7 ug/mL (10.0-30.0)
[2021-12-31 21:16] LABS: Bedside Glucose 99 mg/dL (74-106)
[2021-12-31] MEDS: Ketorolac 15 MG/ML Vial IV (21:31)
[2022-01-02 05:07] LABS: HEPATITIS B SURFACE AG Negative (Negative); Hep C Antibodies <0.1 s/co ratio (0.0-0.9); Hepatitis A IgM Antibody Negative (Negative); Hepatitis B Core AB IgM Negative (Negative)
== END 2021-12-31 21:48 | disposition home or self-care (01) ==
PROVIDERS: Emergency Provider Emergency Medicine; PCP Registered Nurse; Visit Provider Emergency Medicine
DX: B17.9 Acute viral hepatitis, unspecified (principal); R11.0 Nausea; R53.1 Weakness; R74.01 Elevation of levels of liver transaminase levels; K21.9 Gastro-esophageal reflux disease without esophagitis; Z79.899 Other long term (current) drug therapy; Z86.16 Personal history of COVID-19; Z87.891 Personal history of nicotine dependence
CPT/HCPCS: 71045; 74177; 80048; 80074; 80076; 80329; 82962; 83690; 84484; 85025; 86308; 93005; 96365; 96375; 99284; J7030; Q9967; A4216; G0480; J2405; J3490

== ENCOUNTER 2022-06-22 22:27 | Emergency (ER) | payer OTHER, SELFPAY ==
[2022-06-22 22:28] VITALS: BP 145/98; PULSE 88; RESP 19; TEMP 36.2; O2SAT 100; BMI 25.1
--- NOTE | 2022-06-22 22:47 | CT_ITS ---
INDICATION: flank pain EXAMINATION: CT ABDOMEN AND PELVIS WITHOUT CONTRAST - CT Abdomen And Pelvis W/O Contrast Injection TECHNIQUE: Helically acquired images were obtained of the abdomen and pelvis without oral or IV contrast. A radiation dose optimization technique was used for this scan. IV Contrast dosage and agent: None. Oral contrast: None. RADIATION DOSAGE (If Supplied By Facility): CTDIvol = ( 10.71 ) mGy, DLP = ( 612.83 ) mGycm COMPARISON: FINDINGS: LOWER CHEST: Lung bases are clear. No cardiomegaly or pericardial effusion. LIVER: Homogeneous. No focal mass. GALLBLADDER AND BILIARY TREE: No calcified gallstones. No gallbladder distension or wall edema. No intra- or extrahepatic biliary ductal dilation. PANCREAS: No focal cystic or solid mass. SPLEEN: Normal size without focal cystic or solid mass. ADRENAL GLANDS: No nodules. KIDNEYS AND URETERS: Normal renal size and position. No hydronephrosis. PERITONEUM: No ascites or free air. No other fluid collection. BOWEL: Normal appendix. Gastric bypass. No focal inflammatory change. LYMPH NODES: No enlarged mesenteric or retroperitoneal lymph nodes. VESSELS: Aorta is non-dilated. URINARY BLADDER: Unremarkable. REPRODUCTIVE ORGANS: No pelvic masses. ABDOMINAL WALL: No discrete abdominal or pelvic wall hernia. BONES: Chronic bilateral pars defect of L5 with [address]/Abdomen/Pelvis without Cont IMPRESSION: Negative CT abdomen and pelvis without oral or IV contrast. Electronically Signed: Logan Haley MD at 1:52 EDT ,
--- NOTE | 2022-06-22 22:47 | CT_ITS ---
INDICATION: back pain EXAMINATION: CT LUMBAR SPINE - CT Spine Lumbar W/O Contrast Injection TECHNIQUE: Helically acquired images were obtained of the lumbar spine. 2D reformats were reviewed. A radiation dose optimization technique was used for this scan. IV Contrast dosage and agent: None. RADIATION DOSAGE (If Supplied By Facility): CTDIvol = ( 17.28 ) mGy, DLP = ( 497.78 ) mGycm COMPARISON: Descending colon and sigmoid diverticulosis. Nonobstructive stone in the left kidney measures 6 mm. FINDINGS: VERTEBRAE: No fracture or traumatic subluxation. Chronic bilateral pars defect of L5 with resultant 9 mm spondylolisthesis. DISCS and SPINAL CANAL: Disc heights are preserved. No critical stenosis. VISUALIZED ABDOMEN: Visualized abdominal aorta is not dilated. There is no retroperitoneal adenopathy. CT/Spine Lumbar without Contrast IMPRESSION: Chronic bilateral pars defect of L5 with 9 mm spondylolisthesis. Electronically Signed: Logan Haley MD at 1:25 EDT ,
[2022-06-22 23:28] LABS: Bacteria 0 SEEN /hpf (None Seen); Mucous, Urine 0 SEEN /hpf (<or=2+); Red Blood Cells-Urine 0 SEEN /hpf (0-5); Squamous Epithelial Cells - UA 0 SEEN /hpf (0-5); White Blood Cells 0 SEEN /hpf (0-5)
[2022-06-22 23:30] LABS: Color, Urine Yellow (Yellow); Glucose, Dipstick Normal (Normal); Ketone-Dipstick Negative (Negative); Leukocyte Esterase-Dipstick 25 /ul (Negative); Nitrite-Dipstick Negative (Negative); Occult Blood-Urine 25 /ul (Negative); Protein-Dipstick Negative (Negative); Urine Bilirubin Dipstick Negative (Negative); Urine Clarity Clear (Clear); Urine Urobilinogen Normal (Normal); Urine pH 6.5 (5.0 - 8.0)
[2022-06-22 23:30] LABS: Absolute Lymphocyte Count 2.38 X10^3/uL (0.83-4.51); Absolute Neutrophil Count 4.8 X10^3/uL (2.0-7.7); Basophil# 0.04 X10^3/uL; Basophil% 0.5 % (0-1); Eosinophil# 0.15 X10^3/uL; Eosinophils% 1.8 % (0-5); Hematocrit 43.9 % (40-54); Hemoglobin 14.2 g/dL (13.0-16.5); Lymphocyte # 2.38 X10^3/ul (0.83-4.51); Lymphocyte % 27.8 % (19-41); Mean Corp Hgb Conc 32.3 g/dL (32-36); Mean Corpuscular Hgb 30.1 pg (27.0-32.0); Mean Platelet Vol. 9.6 fl (6.2-12.0); Monocyte# 1.09 X10^3/uL; Monocyte% 12.7 % (0-10); NRBC Flagged by Analyzer 0 % (0-5); Neutrophil # 4.78 X10^3/uL (2.7-7.7); Neutrophil % 55.7 % (47-70); Platelet Count 357 K/mm3 (150-450); RBC Distribution Width CV 13.8 % (11.6-14.6); RBC Distribution Width SD 46.9 fl (35.1-43.9); Red Blood Count 4.72 M/mm3 (4.6-6.2); White Blood Count 8.6 K/mm3 (4.4-11.0)
[2022-06-22 23:55] LABS: Lactic Acid 0.6 mmol/L (0.4-1.9)
[2022-06-22 23:58] LABS: Erythrocyte Sedimentation Rate 17 mm/hr (0-20)
[2022-06-23] MEDS: Ketorolac 30 MG/ML Syringe IV (00:03)
[2022-06-23] MEDS: dexAMETHasone 10 MG/ML Vial IV (00:03)
[2022-06-23 00:13] LABS: Anion Gap 3 (5-15); BUN 9 mg/dL (7-18); BUN/Creat Ratio 13.1 RATIO (10-20); CRP < 2.90 mg/L (0.0-3.0); Calcium,Total 7.8 mg/dL (8.5-10.1); Chloride 107 mmol/L (98-107); Creatinine, Serum 0.69 mg/dL (0.70-1.30); EST Glomerular Filtration Rate 135 mL/min (>60); Est Glom Filt Rate - Afr Amer 163 mL/min (>60); Estimated Creatinine Clearance 172.97 ml/min; Glucose 89 mg/dL (74-106); Potassium 3.9 mmol/L (3.5-5.1); Sodium Level 138 mmol/L (136-145)
[2022-06-23] MEDS: Orphenadrine 60 MG/2 ML Ampul IV (00:24)
[2022-06-23 02:07] VITALS: PULSE 70; RESP 18; O2SAT 99
--- NOTE | 2022-06-23 02:08 | EDS_ITS ---
HPI History of Present Illness Chief Complaint: Back Narrative Narrative: Patient is a 42-year-old male with past medical history of upper GI bleed. He states that over the past 4 weeks he has had pain in his low back. He states there is no sudden onset of the pain and there is no excessive activity or trauma prior to the pain beginning. He states has been going to the chiropractor and has not had any improvement of his symptoms. He states today he had a physical for his work and he was told there was blood in his urine. He denies any loss of bowel or bladder control or IV drug use. He denies any dysuria. He denies any recent surgical procedures. However he has been trying [id number] medications without any symptom improvement and secondary to this comes in for evaluation [facility] Medical History Alcohol abuse Anxiety Bulging disc Chest pain Depression Former smoker GERD (gastroesophageal reflux disease) Hypertension Spinal stenosis Home Medications multivitamin 1 tab PO DAILY 09/21/21 [History Last Taken Unknown] omeprazole 40 mg capsule,delayed release 1 cap PO DAILY 09/21/21 [History Last Taken Unknown] ondansetron 4 mg disintegrating tablet 4 mg PO Q6H PRN nausea and vomiting #20 tabs 12/31/21 [Rx Last Taken Unknown] methocarbamol 500 mg tablet 1,000 mg PO 4X/DAY PRN PRN Muscle pain/spasm 7 days #56 tabs 06/23/22 [Rx Last Taken Unknown] oxycodone-acetaminophen 5 mg-325 mg tablet (Endocet) 1 tab PO Q6H PRN pain 3 days #12 tabs 06/23/22 [Rx Last Taken Unknown] prednisone 20 mg tablet 40 mg PO DAILY 5 days #10 tabs 06/23/22 [Rx Last Taken Unknown] Allergy/AdvReac Type Severity Reaction Status Date / Time NSAIDS (Non-Steroidal AdvReac Other Verified 06/22/22 22:29 Anti-Inflamma Surgical History H/O gastric bypass History of arthroplasty of left knee S/P left rotator cuff repair Social History Smoking Status: Former smoker ROS ROS ED Constitutional Constitutional ED: Denies chills or fever(s) ENT ENT ED: Denies sore throat Cardiovascular Cardiovascular: Denies chest pain Respiratory/Chest Respiratory/Chest: Denies cough or dyspnea Gastrointestinal Gastrointestinal: Denies abdominal pain, diarrhea, nausea or vomiting Genitourinary Genitourinary ED: Reports hematuria; Denies dysuria Musculoskeletal Musculoskeletal: Reports back pain; Denies myalgias Integumentary Denies rash Neurologic Neurologic: Denies headache(s) or paresthesias Hematologic/Lymphatic Hematologic/Lymphatic: Denies easy bleeding or easy bruising EXAM Physical Exam Const Vital Signs: 06/22/22 22:28 06/23/22 02:07 Temperature 97.2 F L Temperature Source Temporal Pulse Rate 88 70 Respiratory Rate 19 H 18 Blood Pressure 145/98 H Blood Pressure Mean 113 Pulse Ox 100 99 Oxygen Delivery Method Room Air Positive well nourished and well developed General Appearance ED: well developed Eyes PERRL and EOMs intact bilaterally Neck supple Resp normal respiratory effort and clear to auscultation bilaterally Cardio regular rate and regular rhythm Rate: other Other Details: Radial pulses are plus 2 out of 4 bilaterally are equal and symmetric GI normal to inspection, nondistended, normoactive bowel sounds, non-tender, non- distended and no masses GI Narrative: No voluntary guarding or rigidity no pulsatile mass Auscultation: normoactive bowel sounds Palpation: soft Back/Spine Back/Spine Narrative: No bony deformity or step-off of the thoracic or lumbar spine. There is pain on palpation along the right sacroiliac joint. No saddle anesthesia. Negative straight leg raise. No clonus or Babinski. Patellar reflexes are plus 2 out of 4 bilaterally Extremity normal to inspection Neuro oriented x3 and CN's II-XII intact bilaterally Sensorium / Orientation: alert Psych mental status grossly normal Skin no rashes or lesions noted Skin Narrative: No overlying soft tissue changes to suggest trauma or infection MDM MDM MDM Narrative Medical decision making narrative: Patient presented to the ER slightly hypertensive but otherwise with stable vitals. Secondary to the prolonged nature of his pain and elected perform a CT scan. Differential includes compression fracture versus spinal thesis versus herniated disc versus kidney stone or pyelonephritis. Because of the hematuria reported on the outpatient lab I like to perform a noncontrast CT of his abdomen and pelvis which revealed no acute findings. Patient denied any loss of bowel or bladder control or IV drug use and therefore my concern for cauda equina or epidural abscess is low. He also denied any recent surgical procedure but as he could also have a discitis or possible osteomyelitis as a cause of his persistent pain I did elect to check inflammatory markers. White count ESR and lactate are normal as well as CRP going against acute infection or inflammation. CT scan showed a grade 1 spondylolisthesis which could be the cause of his symptoms. However at this time he has no signs of neuro claudication and therefore does not need admitted to the hospital and can be discharged home with symptomatic care and outpatient follow-up History & Record Review Discussion w/independent historian: Patient Lab Data Attestation: I reviewed the patient's lab results. Labs: Laboratory Results - last 24 hr 06/22/22 06/22/22 06/22/22 23:17 23:17 23:17 WBC 8.6 RBC 4.72 Hgb 14.2 Hct 43.9 MCV 93.0 MCH 30.1 MCHC 32.3 RDW Std Deviation 46.9 H RDW Coeff of Connie 13.8 Plt Count 357 MPV 9.6 Immature Gran % (Auto) 1.500 H Neut % (Auto) 55.7 Lymph % (Auto) 27.8 [place] % (Auto) 12.7 H Eos % (Auto) 1.8 Baso % (Auto) 0.5 Absolute Neuts (auto) 4.8 Absolute Lymphs (auto) 2.38 Nucleated RBC % 0 ESR 17 Sodium 138 Potassium 3.9 Chloride 107 Carbon Dioxide 28.0 Anion Gap 3 L BUN 9 Creatinine 0.69 L Estim Creat Clear Calc 172.97 Est GFR (MDRD) Af Amer 163 Est GFR (MDRD) Non-Af 135 BUN/Creatinine Ratio 13.1 Glucose 89 Lactic Acid 0.6 Calcium 7.8 L C-React Prot Ext Range < 2.90 Urine Color Urine Clarity Urine pH Ur Specific [place] Urine Protein Urine Glucose (UA) Urine Ketones Urine Occult Blood Urine Nitrite Urine Bilirubin Urine Urobilinogen Ur Leukocyte Esterase Urine RBC Urine WBC Ur Squamous Epith Cells Urine Bacteria Urine Mucus 06/22/22 23:21 WBC RBC Hgb Hct MCV MCH MCHC RDW Std Deviation RDW Coeff of Connie Plt Count MPV Immature Gran % (Auto) Neut % (Auto) Lymph % (Auto) [place] % (Auto) Eos % (Auto) Baso % (Auto) Absolute Neuts (auto) Absolute Lymphs (auto) Nucleated RBC % ESR Sodium Potassium Chloride Carbon Dioxide Anion Gap BUN Creatinine Estim Creat Clear Calc Est GFR (MDRD) Af Amer Est GFR (MDRD) Non-Af BUN/Creatinine Ratio Glucose Lactic Acid Calcium C-React Prot Ext Range Urine Color Yellow Urine Clarity Clear Urine pH 6.5 Ur Specific [place] 1.010 Urine Protein Negative Urine Glucose (UA) Normal Urine Ketones Negative Urine Occult Blood 25 H Urine Nitrite Negative Urine Bilirubin Negative Urine Urobilinogen Normal Ur Leukocyte Esterase 25 H Urine RBC 0 SEEN Urine WBC 0 SEEN Ur Squamous Epith Cells 0 SEEN Urine Bacteria 0 SEEN Urine Mucus 0 SEEN Radiography Diagnostic Testing: Clinical Impression(s) from Imaging Studies Abdomen/Pelvis CT 06/22/22 22:47 IMPRESSION: Negative CT abdomen and pelvis without oral or IV contrast. Electronically Signed: Logan Haley MD at 1:52 EDT , Lumbar Spine CT 06/22/22 22:47 IMPRESSION: Chronic bilateral pars defect of L5 with 9 mm spondylolisthesis. Electronically Signed: Logan Haley MD at 1:25 EDT , Discharge Plan Triage Chief Complaint: Back ED Provider: Sajan Stern Dx/Rx/DC Orders Clinical Impression: Spondylolisthesis, Sacroiliac joint dysfunction Instructions: Common Spine and Disk Problems, Understanding Coccydynia Prescriptions: New oxycodone-acetaminophen [Endocet] 5-325 mg tablet 1 tab PO Q6H PRN (Reason: pain) 3 Days Qty: 12 0RF methocarbamol 500 mg tablet 1,000 mg PO 4X/DAY PRN PRN (Reason: Muscle pain/spasm) 7 Days Qty: 56 0RF prednisone 20 mg tablet 40 mg PO DAILY 5 Days Qty: 10 0RF No Action multivitamin Tablet 1 tab PO DAILY omeprazole 40 mg capsule,delayed release(DR/EC) 1 cap PO DAILY Label Comments: TAKE 1 CAPSULE BY MOUTH EVERY DAY ondansetron 4 mg tablet,disintegrating 4 mg PO Q6H PRN (Reason: nausea and vomiting) Qty: 20 0RF Primary Care Provider: Velvet Danielle NP Referrals: Timothy Foster MD [Med Staff - Active Staff] - Velvet Danielle NP, ENRICHMENT TEACHER-C [Primary Care Provider] - Activity Restrictions/Additional Instructions: Your CT scan shows a spondylolisthesis which is a shifting of the spine on top of itself. This is typically corrected with time and physical therapy. Please follow-up with orthopedics to discuss need for injections or further testing and return to the ER should you have any further concerns. Disposition Disposition: Home, Self Care Discharge Date/Time: 06/23/22 02:22
== END 2022-06-23 02:22 | disposition home or self-care (01) ==
PROVIDERS: Emergency Provider Emergency Medicine; PCP Registered Nurse; Visit Provider Emergency Medicine
DX: M43.16 Spondylolisthesis, lumbar region (principal); Z87.891 Personal history of nicotine dependence
CPT/HCPCS: 72131; 74176; 80048; 81001; 83605; 85025; 85652; 86140; 96374; 96375; 99283; A4216

== ENCOUNTER 2023-06-25 22:01 | Emergency (ER) | payer BC, SELFPAY ==
[2023-06-25 22:02] VITALS: BP 138/86; PULSE 81; RESP 12; TEMP 36.8; O2SAT 97
[2023-06-25 22:07] VITALS: TEMP 36.8; BMI 25.7
--- NOTE | 2023-06-25 22:16 | EKG12_ITS ---
Test Reason : CP Blood Pressure : / mmHG Vent. Rate : 085 BPM Atrial Rate : 085 BPM P-R Int : 154 ms QRS Dur : 078 ms QT Int : 362 ms P-R-T Axes : 074 037 066 degrees QTc Int : 430 ms Normal sinus rhythm Normal ECG Confirmed by Jaylen Dillard ([id number]), video editor AMANDA KEITA ([id number]) on 06/28/2023 2:22:14 PM Referred By: TWIN Confirmed By:Jaylen Dillard
--- NOTE | 2023-06-25 22:17 | ED.VIS.CHEST ---
HPI History of Present Illness Chief Complaint: Chest Pain Informant: patient and EMS Narrative Narrative: Brought in by EMS reported chest pains and possible seizure activity. Patient states 9 PM having intercourse with the spouse, reported he was staring away started shaking and had chest pain across his chest. He states he was alert throughout. Currently subsiding. He has had on and off seizure type activities for past few years he is follow-up with [facility] neurology. Similar episode 2 weeks ago follow-up with neurology 3 days ago upcoming MRI. Previous EEGs have been negative. He is not on any seizure medications. He denies any Viagara type medication prior to intercourse. He was doing fine up to 9 PM. Report he had a coughing episode when EMS was contacted. Denies hypertension, diabetes or hyperlipidemia. Denies tobacco. Denies any family history of MIs at young age. Prior Similar Symptoms: Yes CVD Risk Factors: Negative for Hypertension, Diabetes, Hypercholesterolemia, Family History 1' </=55 or Smoking PE Risk Factors: Negative for Recent Travel/Surgery or Recent Immobilization [facility] Medical History Alcohol abuse Anxiety Bulging disc Chest pain Depression Former smoker GERD (gastroesophageal reflux disease) Hypertension Spinal stenosis Home Medications multivitamin 1 tab PO DAILY 09/21/21 [History Last Taken Unknown] omeprazole 40 mg capsule,delayed release 1 cap PO DAILY 09/21/21 [History Last Taken Unknown] ondansetron 4 mg disintegrating tablet 4 mg PO Q6H PRN nausea and vomiting #20 tabs 12/31/21 [Rx Last Taken Unknown] methocarbamol 500 mg tablet 1,000 mg (2 x 500 mg) PO 4X/DAY PRN PRN Muscle pain/spasm 7 days #56 tabs 06/23/22 [Rx Last Taken Unknown] oxycodone-acetaminophen 5 mg-325 mg tablet (Endocet) 1 tab PO Q6H PRN pain 3 days #12 tabs 06/23/22 [Rx Last Taken Unknown] prednisone 20 mg tablet 40 mg (2 x 20 mg) PO DAILY 5 days #10 tabs 06/23/22 [Rx Last Taken Unknown] Allergy/AdvReac Type Severity Reaction Status Date / Time NSAIDS (Non-Steroidal AdvReac Other Verified 06/22/22 22:29 Anti-Inflamma Surgical History H/O gastric bypass History of arthroplasty of left knee S/P left rotator cuff repair Social History Smoking Status: Former smoker ROS ROS ED Constitutional Constitutional ED: Denies chills, fever(s) or sweats Eyes Eyes: Denies change in vision ENT ENT ED: Denies dysphagia or sore throat Cardiovascular Cardiovascular: Reports chest pain; Denies leg edema, palpitations or racing heartbeat Respiratory/Chest Respiratory/Chest: Denies cough, dyspnea or dyspnea on exertion Gastrointestinal Gastrointestinal: Denies abdominal pain, diarrhea, nausea or vomiting Genitourinary Genitourinary ED: Denies dysuria, hematuria or urinary frequency Musculoskeletal Musculoskeletal: Denies back pain, extremity pain or neck pain Integumentary Denies rash or wounds Neurologic Neurologic: Reports other Details: Questionable seizure ; Denies headache(s), paresthesias or weakness EXAM Physical Exam Const Vital Signs: 06/25/23 22:02 06/25/23 22:07 06/25/23 22:07 Temperature 98.2 F 98.2 F Temperature Source Temporal Temporal Pulse Rate 81 Respiratory Rate 12 Respiratory Effort Normal Blood Pressure 138/86 H Blood Pressure Mean 103 Pulse Ox 97 Oxygen Delivery Method Room Air 06/25/23 23:02 06/25/23 23:53 Temperature Temperature Source Pulse Rate 86 76 Respiratory Rate 16 16 Respiratory Effort Blood Pressure 121/80 H 99/42 L Blood Pressure Mean 93 61 Pulse Ox 99 96 Oxygen Delivery Method Room Air Room Air Positive well nourished and well developed General Appearance ED: well developed and NAD HEENT Reports moist mucous membranes normocephalic and atraumatic Eyes PERRL, EOMs intact bilaterally and conjunctivae normal General Eye ED: Yes normal appearance of both eyes Neck no lymphadenopathy and supple General: Negative for tenderness Chest Wall Chest: Negative for tenderness Resp normal respiratory effort and normal air movement Effort and Inspection: symmetric chest movement; Negative for respiratory distress Cardio regular rate, regular rhythm and no murmurs Peripheral Pulses: pulses 2+ throughout GI normal to inspection, nondistended, normoactive bowel sounds and non-tender Palpation: Negative for guarding or rebound tenderness present Back/Spine no CVA tenderness and no thoracic nor lumbar tenderness Extremity normal to inspection General Extremety ED: Negative for edema or tenderness General Extremity: Negative for edema Neuro oriented x3 and no sensory deficits noted Sensorium / Orientation: awake and alert Skin no rashes or lesions noted and no wounds MDM MDM MDM Narrative Medical decision making narrative: Interventions / MDM: Differential diagnosis: Seizure-like activity, chest pain Diagnosis considered but do not suspect: ACS however EKG and negative cardiac enzymes My EKG interpretation: Sinus rate of 85, no ST or T wave changes. Imaging independently reviewed and interpreted by myself: 1 view chest x-ray no acute process. External documents reviewed: N/A Test considered but not ordered:N/A ED course: Patient presenting reported seizure-like activities with chest pain. EKG with no acute findings. There is no focal deficits. Currently alert and orient x 3. Cardiac workup initiated. Seizure precautions. 2330: Chest x-ray negative. Initial troponin negative. Urine negative for infection. Electrolytes are all normal. Chest pain subsided. Will obtain a 2-hour troponin. Spouse and mother currently present. For similar activity has been going on for years. They are following Dr. Hawkins neurology. Has an MRI planned in the next few weeks of the brain. Has plan 3-day EEG at home to be performed. 0054: Repeat troponin negative. No seizure activities in the ED. Recurrent seizure-like activity is no clear diagnosis time. He has planned further outpatient testing with his neurologist. I considered admission however patient back to baseline, discussed with patient and family they would like to continue workup as an outpatient. Will contact her neurologist after the weekend. Discussed return precautions. All questions were answered. Re-evaluation: stable Disposition discussed with patient/family/significant other: Patient and family Case discussed with consulting clinician: N/A This note was generated with [employer] dictation software. It may contain incorrect words, spelling, and punctuation that were not noted in checking the note before signing. Lab Data Attestation: I reviewed the patient's lab results. Labs: Laboratory Results - last 24 hr 06/25/23 06/25/23 06/26/23 22:15 22:25 00:14 WBC 6.3 RBC 4.83 Hgb 13.9 Hct 43.3 MCV 89.6 MCH 28.8 MCHC 32.1 RDW Std Deviation 44.7 H RDW Coeff of Connie 13.5 Plt Count 288 MPV 10.0 Immature Gran % (Auto) 0.500 Neut % (Auto) 49.3 Lymph % (Auto) 33.0 [place] % (Auto) 13.7 H Eos % (Auto) 2.7 Baso % (Auto) 0.8 Absolute Neuts (auto) 3.1 Absolute Lymphs (auto) 2.09 Nucleated RBC % 0 Sodium 142 Potassium 3.5 Chloride 108 H Carbon Dioxide 24.0 Anion Gap 10 BUN 9 Creatinine 0.80 Estim Creat Clear Calc 147.68 Est GFR (MDRD) Af Amer 136 Est GFR (MDRD) Non-Af 112 BUN/Creatinine Ratio 11.2 Glucose 88 Calcium 8.1 L Troponin I High Sens 3 3 Urine Color Straw Urine Clarity Clear Urine pH 6.5 Ur Specific [place] 1.010 Urine Protein Negative Urine Glucose (UA) Normal Urine Ketones Negative Urine Occult Blood 25 H Urine Nitrite Negative Urine Bilirubin Negative Urine Urobilinogen Normal Ur Leukocyte Esterase Negative Urine RBC 0 SEEN Urine WBC 0 SEEN Ur Squamous Epith Cells 0 SEEN Urine Bacteria 0 SEEN Urine Mucus 0 SEEN Radiography Diagnostic Testing: Clinical Impression(s) from Imaging Studies Chest X-Ray 06/25/23 22:20 IMPRESSION: No evidence of acute cardiopulmonary disease. Electronically Signed: Michael Key DO at 22:49 EDT , Discharge Plan Triage Chief Complaint: Chest Pain Other Complaint: Seizure ED Provider: Luciano Sterling Dx/Rx/DC Orders Clinical Impression: Seizure-like activity, Chest pain Instructions: ED Chest Pain, Uncertain Cause Prescriptions: No Action multivitamin Tablet 1 tab PO DAILY omeprazole 40 mg capsule,delayed release(DR/EC) 1 cap PO DAILY Patient Comments: TAKE 1 CAPSULE BY MOUTH EVERY DAY ondansetron 4 mg tablet,disintegrating 4 mg PO Q6H PRN (Reason: nausea and vomiting) Qty: 20 0RF oxycodone-acetaminophen [Endocet] 5-325 mg tablet 1 tab PO Q6H PRN (Reason: pain) 3 Days Qty: 12 0RF methocarbamol 500 mg tablet 1,000 mg PO 4X/DAY PRN PRN (Reason: Muscle pain/spasm) 7 Days Qty: 56 0RF prednisone 20 mg tablet 40 mg PO DAILY 5 Days Qty: 10 0RF Primary Care Provider: Velvet Danielle NP Referrals: Will Hawkins MD [Non-Staff] - 3-5 Days Velvet Danielle NP, UNIVERSITY PROFESSOR-C [Primary Care Provider] - 3-5 Days Activity Restrictions/Additional Instructions: Your cardiac workup negative. Report seizure-like activities. Labs are all stable your neck for infection. Follow-up with your neurologist for further testing as outpatient. Symptoms recur, you may return to the ED for reevaluation. Disposition Disposition: Home, Self Care
--- NOTE | 2023-06-25 22:20 | RAD_ITS ---
INDICATION: chest pain EXAMINATION/TECHNIQUE: X-RAY - XR Chest 1 View COMPARISON: 12/31/2021. FINDINGS: LINES/DEVICES: None. LUNGS: No consolidation or evidence of an effusion. No evidence of edema or a pneumothorax. Stable calcified granuloma in the right lung apex. MEDIASTINUM AND CARDIOVASCULAR STRUCTURES: Cardiac silhouette is normal in size and contour. Mediastinum is unremarkable. BONES AND SOFT TISSUES: No acute abnormality. RAD/Chest 1 View (Portable) IMPRESSION: No evidence of acute cardiopulmonary disease. Electronically Signed: Michael Key DO at 22:49 EDT ,
[2023-06-25 22:31] LABS: Absolute Lymphocyte Count 2.09 X10^3/uL (0.83-4.51); Absolute Neutrophil Count 3.1 X10^3/uL (2.0-7.7); Basophil# 0.05 X10^3/uL; Basophil% 0.8 % (0-1); Eosinophil# 0.17 X10^3/uL; Eosinophils% 2.7 % (0-5); Hematocrit 43.3 % (40-54); Hemoglobin 13.9 g/dL (13.0-16.5); Lymphocyte # 2.09 X10^3/ul (0.83-4.51); Mean Corp Hgb Conc 32.1 g/dL (32-36); Mean Corpuscular Hgb 28.8 pg (27.0-32.0); Mean Corpuscular Volume 89.6 fL (80-94); Monocyte# 0.87 X10^3/uL; Monocyte% 13.7 % (0-10); NRBC Flagged by Analyzer 0 % (0-5); Neutrophil # 3.13 X10^3/uL (2.7-7.7); Neutrophil % 49.3 % (47-70); Platelet Count 288 K/mm3 (150-450); RBC Distribution Width CV 13.5 % (11.6-14.6); RBC Distribution Width SD 44.7 fl (35.1-43.9); Red Blood Count 4.83 M/mm3 (4.6-6.2); White Blood Count 6.3 K/mm3 (4.4-11.0)
[2023-06-25 22:31] LABS: Bacteria 0 SEEN /hpf (None Seen); Mucous, Urine 0 SEEN /hpf (<or=2+); Red Blood Cells-Urine 0 SEEN /hpf (0-5); Squamous Epithelial Cells - UA 0 SEEN /hpf (0-5); White Blood Cells 0 SEEN /hpf (0-5)
[2023-06-25 22:46] LABS: Color, Urine Straw (Yellow); Glucose, Dipstick Normal (Normal); Ketone-Dipstick Negative (Negative); Leukocyte Esterase-Dipstick Negative /ul (Negative); Nitrite-Dipstick Negative (Negative); Occult Blood-Urine 25 /ul (Negative); Protein-Dipstick Negative (Negative); Urine Bilirubin Dipstick Negative (Negative); Urine Clarity Clear (Clear); Urine Urobilinogen Normal (Normal); Urine pH 6.5 (5.0 - 8.0)
[2023-06-25 22:59] LABS: Anion Gap 10 (5-15); BUN 9 mg/dL (7-18); BUN/Creat Ratio 11.2 RATIO (10-20); Calcium,Total 8.1 mg/dL (8.5-10.1); Chloride 108 mmol/L (98-107); EST Glomerular Filtration Rate 112 mL/min (>60); Est Glom Filt Rate - Afr Amer 136 mL/min (>60); Estimated Creatinine Clearance 147.68 ml/min; Glucose 88 mg/dL (74-106); Potassium 3.5 mmol/L (3.5-5.1); Sodium Level 142 mmol/L (136-145); Troponin-I HS (w/2H Reflex) 3 pg/mL (3.0-78.0)
[2023-06-25 23:02] VITALS: BP 121/80; PULSE 86; RESP 16; O2SAT 99
[2023-06-25] MEDS: Acetaminophen 500 MG Tablet 1000 MG PO (23:18)
[2023-06-25 23:53] VITALS: BP 99/42; PULSE 76; RESP 16; O2SAT 96
[2023-06-26 00:22] LABS: Reflex Troponin-HS? (from REC) Y
[2023-06-26 00:44] LABS: Troponin-I HS 3 pg/mL (3.0-78.0)
[2023-06-26 01:02] VITALS: BP 140/98; PULSE 60; RESP 16; TEMP 36.9; O2SAT 96
== END 2023-06-26 01:03 | disposition home or self-care (01) ==
PROVIDERS: Emergency Provider Emergency Medicine; PCP Registered Nurse; Visit Provider Emergency Medicine
DX: R56.9 Unspecified convulsions (principal); R07.9 Chest pain, unspecified; Z87.891 Personal history of nicotine dependence
CPT/HCPCS: 71045; 80048; 81001; 84484; 85025; 93005; 99284; A4216

== ENCOUNTER 2024-08-25 09:17 | Emergency (ER) | payer BC, SELFPAY ==
[2024-08-25 09:17] VITALS: BP 138/100; PULSE 95; RESP 16; TEMP 36.3; O2SAT 99; BMI 23.9
--- NOTE | 2024-08-25 10:30 | EDS_ITS ---
HPI HPI - Psych History of Present Illness Chief Complaint: Suicidal Narrative Narrative: 44-year-old male with past medical history of depression and anxiety, on medication for a month presents after being incarcerated, pink slipped by crisis. He relates history that he got in an argument with his 2 days ago on Wednesday evening. He had been drinking alcohol and not taking his medication. He states that his took his child away from him, and he stated something to the effect that if nobody wanted him around that he may as well and it all. He did not have a plan, but he took the car and left. He states that his had called the sheriffs detective on him and he was pulled over, and was arrested for DUI. He spent yesterday, , and incarcerated in the nursing home. He was unable to do the jobs yesterday because of a national holiday. He state s that he was released from suicide watch by crisis yesterday. He saw the recruiter coordinator today and was released from nursing home, but yesterday although he was cleared, was decided that he should come to the hospital for reevaluation for suicidality. Patient currently denies any suicidality or plan. No somatic symptoms. PFSH PFSH Medical History Alcohol abuse Anxiety Depression Bulging disc Spinal stenosis GERD (gastroesophageal reflux disease) Hypertension Chest pain Former smoker Home Medications ?Medication ?Instructions ?Recorded ?Last Taken ?Type multivitamin 1 tab PO DAILY 09/21/21 Unkn own History omeprazole 40 mg capsule,delayed 1 cap PO DAILY Unknown History release ondansetron 4 mg disintegrating 4 mg PO Q6H PRN nausea and 12/31/21 Unknown Rx tablet vomiting #20 tabs methocarbamol 500 mg tablet 1,000 mg (2 x 500 mg) PO 4 X/DAY 06/23/22 Unknown Rx PRN PRN Muscle pain/spasm 7 days #56 tabs oxycodone-acetaminophen 5 mg-325 1 tab PO Q6H PRN pain 3 days #12 06/23/22 Unknown Rx mg tablet (Endocet) tabs prednisone 20 mg tablet 40 mg (2 x 20 mg) PO DAILY 5 days 06/23/22 Unknown Rx #10 tabs Allergy/AdvReac Type Severity Reaction Status Date / Time NSAIDS (Non-Steroidal AdvReac Other Verified 06/22/22 22:29 Anti-Inflamma Surgical History S/P left rotator cuff repair History of arthroplasty of left knee H/O gastric bypass Social History Smoking Status: Former smoker ROS ROS ED ROS Narrative Review of systems positive for previous suicide already without plan. Problem with depression and anxiety and alcohol abuse. Denies any chest pain, shortness of breath, or other somatic symptoms. EXAM Physical Exam Narrative Exam Narrative: Afebrile. Vital signs noted. Nontoxic-appearing. Cardiovascular examination reveals a regular rate and rhythm. Lungs are clear to auscultation bilaterally. Abdomen is soft, nontender, with positive bowel sounds. No guarding or rebound. Neurological examination nonfocal, nonlateralizing, moves all extremities. Psychiatric examination shows that he denies suicidal ideation or plan, no internal stimulation or active hallucinations. Normal affect. Const Vital Signs: 08/25/24 09:17 Temperature 97.4 F L Temperature Source Oral Pulse Rate 95 Respiratory Rate 16 Blood Pressure 138/100 H Blood Pressure Mean 112 Pulse Ox 99 Oxygen Delivery Method Room Air MDM MDM MDM Narrative Medical decision making narrative: I do not feel that the patient requires medical screening labs as he spent the last day incarcerated. As he was pink slipped by crisis/mental health counselor at the nursing home. However, in discussion with social work/case management with the possibility of him requiring placement, they will be obtained. I reviewed his laboratory work and he has normal white count 9.4 with hemoglobin 15.6, hematocrit 47.9, platelet count normal at 347, CMP grossly unremarkable. Alcohol is negative and urine for drug abuse also negative. I did review his pink slip filled out by the counselor at the nursing home. With his access to firearms still being questionable, it was felt that he would benefit from admission and dual diagnosis facility for his alcohol abuse, alcoholism and for depression and suicidality that he had expressed previously. Per case management, his family is also concerned about his impulsivity and explosiveness. At this point in [place], he has been accepted at [facility]. Disposition is transferred in stable condition. History & Record Review Discussion w/independent historian: Patient Lab Data Attestation: I reviewed the patient's lab results. Labs: Laboratory Results - last 24 hr 06/20/25 09:44 WBC 9.4 RBC 5.34 Hgb 15.6 Hct 47.9 MCV 89.7 MCH 29.2 MCHC 32.6 RDW Std Deviation 44.9 H RDW Coeff of Connie 13.8 Plt Count 347 MPV 10.0 Immature Gran % (Auto) 0.300 Neut % (Auto) 75.2 H Lymph % (Auto) 10.8 L Mcnairy % (Auto) 12.8 H Eos % (Auto) 0.5 Baso % (Auto) 0.4 Absolute Neuts (auto) 7.0 Absolute Lymphs (auto) 1.01 Nucleated RBC % 0 Sodium 140 Potassium 3.8 Chloride 100 Carbon Dioxide 24.5 Anion Gap 15 BUN 12 Creatinine 0.81 Estim Creat Clear Calc 144.37 Est GFR (MDRD) Non-Af 112 BUN/Creatinine Ratio 14.7 Glucose 94 Calcium 8.9 Total Bilirubin 0.74 AST 37 ALT 28 Alkaline Phosphatase 93 Total Protein 7.2 Albumin 3.7 Globulin 3.5 Albumin/Globulin Ratio 1.1 Urine Opiates Screen NEGATIVE U Buprenorphine Qual NEGATIVE Ur Oxycodone Screen NEGATIVE Urine Methadone Screen NEGATIVE Urine Fentanyl Screen NEGATIVE Ur Barbiturates Screen NEGATIVE Ur Phencyclidine Scrn NEGATIVE Ur Amphetamines Screen NEGATIVE U Benzodiazepines Scrn NEGATIVE Urine Cocaine Screen NEGATIVE U Cannabinoids Screen NEGATIVE Ethyl Alcohol < 10.1 Management Discussion w/another healthcare provider: housekeeper/custodian/laundry worker/Case management Discharge Plan Triage Chief Complaint: Suicidal ED Provider: Carlyle Betts Dx/Rx/DC Orders Clinical Impression: Anxiety and depression, Threatening suicide, Alcohol abuse Prescriptions: No Action multivitamin Tablet 1 tab PO DAILY omeprazole 40 mg capsule,delayed release(DR/EC) 1 cap PO DAILY Patient Comments: TAKE 1 CAPSULE BY MOUTH EVERY DAY ondansetron 4 mg tablet,disintegrating 4 mg PO Q6H PRN (Reason: nausea and vomiting) Qty: 20 0RF oxycodone-acetaminophen [Endocet] 5-325 mg tablet 1 tab PO Q6H PRN (Reason: pain) 3 Days Qty: 12 0RF methocarbamol 500 mg tablet 1,000 mg PO 4X/DAY PRN PRN (Reason: Muscle pain/spasm) 7 Days Qty: 56 0RF prednisone 20 mg tablet 40 mg PO DAILY 5 Days Qty: 10 0RF Primary Care Provider: Velvet Danielle [employer] MANAGER Referrals: Haagen,Velvet [employer]PER[employer] MANAGER, [employer]PER[employer] MANAGER-C [Primary Care Provider] - Print Language: Nepali Disposition Disposition: Psychiatric Hospital or Unit Discharge Location: [facility]
[2024-08-25 10:53] LABS: Absolute Lymphocyte Count 1.01 X10^3/uL (0.83-4.51); Basophil# 0.04 X10^3/uL; Basophil% 0.4 % (0-1); Eosinophil# 0.05 X10^3/uL; Eosinophils% 0.5 % (0-5); Hematocrit 47.9 % (40-54); Hemoglobin 15.6 g/dL (13.0-16.5); Lymphocyte # 1.01 X10^3/ul (0.83-4.51); Lymphocyte % 10.8 % (19-41); Mean Corp Hgb Conc 32.6 g/dL (32-36); Mean Corpuscular Hgb 29.2 pg (27.0-32.0); Mean Corpuscular Volume 89.7 fL (80-94); Monocyte% 12.8 % (0-10); NRBC Flagged by Analyzer 0 % (0-5); Neutrophil # 7.02 X10^3/uL (2.7-7.7); Neutrophil % 75.2 % (47-70); Platelet Count 347 K/mm3 (150-450); RBC Distribution Width CV 13.8 % (11.6-14.6); RBC Distribution Width SD 44.9 fl (35.1-43.9); Red Blood Count 5.34 M/mm3 (4.6-6.2); White Blood Count 9.4 K/mm3 (4.4-11.0)
[2024-08-25 11:14] LABS: ALB/GLOB Ratio 1.1 RATIO (0.9-2.4); AST(SGOT) 37 U/L (<=37); Alanine Aminotransfer ALT/SGPT 28 U/L (<=46); Albumin, Serum 3.7 g/dL (3.5-5.0); Alkaline Phosphatase 93 U/L (40-129); Anion Gap 15 (5-15); BUN 12 mg/dL (4-19); BUN/Creat Ratio 14.7 RATIO (10-20); Calcium,Total 8.9 mg/dL (7.6-11.0); Carbon Dioxide 24.5 mmol/L (21.0-32.0); Chloride 100 mmol/L (98-108); Creatinine, Serum 0.81 mg/dL (0.70-1.20); EST Glomerular Filtration Rate 112 (>60); Estimated Creatinine Clearance 144.37 ml/min (50-250); Globulin 3.5 g/dL (2.2-4.2); Glucose 94 mg/dL (70-99); Potassium 3.8 mmol/L (3.3-5.1); Protein, Total 7.2 g/dL (5.9-8.4); Sodium Level 140 mmol/L (133-145); Total Bilirubin 0.74 mg/dL (0.00-1.30)
[2024-08-25 11:21] LABS: Alcohol, Blood (Medical)-Serum < 10.1 mg/dL (<=10.0); Amphetamine Urine NEGATIVE (<1000 ng/mL); Barbiturate Urine NEGATIVE (< 200 ng/mL); Benzodiazepine Urine NEGATIVE (< 200 ng/mL); Buprenorphine Urine NEGATIVE (< 200 ng/mL); Cocaine Urine NEGATIVE (< 300 ng/mL); Fentanyl, Urine NEGATIVE; Methadone Urine NEGATIVE (< 300 ng/mL); Opiates Urine NEGATIVE (< 300 ng/mL); Oxycodone, Urine NEGATIVE (< 100 ng/mL); PCP Urine NEGATIVE (< 25 ng/mL); THC Urine NEGATIVE (< 50 ng/mL)
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
--- NOTE | 2024-08-25 13:36 | CM.ED ---
Social work SW talked with Dr. Betts and dual diagnosis inpatient treatment was agreed upon. Updated nursing, patient, and family. Patient was tearful and expressed this not being what I wanted. Patient was understanding of the reasoning behind dual diagnosis treatment. SW called [facility] (ph: ) and beds were available. Referral faxed (f: ) at [phone]. Nursing updated. SW heard by front desk lead that patient was accepted at [facility]. Patient and patient's mother updated. Patient expressed concern with possibly missing patient's court dates on Tuesday 08/29. Melodie Nguyen from [facility] was called (ph: [phone]) and SW had to leave a VM. SW to follow up on Wednesday. Plan: [facility], transport pending. Ana Bryan, FOUNDER, CHANNEL SPECIALIST
[2024-08-25 16:00] VITALS: BP 139/90; PULSE 99; RESP 17; TEMP 36.8; O2SAT 96
== END 2024-08-25 16:01 ==
PROVIDERS: Emergency Provider Emergency Medicine; PCP Registered Nurse; Visit Provider Emergency Medicine
DX: F41.9 Anxiety disorder, unspecified (principal); F32.A Depression, unspecified; R45.851 Suicidal ideations; F10.10 Alcohol abuse, uncomplicated; Z87.891 Personal history of nicotine dependence
CPT/HCPCS: 36415; 80053; 80307; 82077; 85025; 99285